=== PATIENT | male | born 1930 | race Caucasian/White ===

== ENCOUNTER 2017-05-02 14:45 | Outpatient (CLI) | payer MEDICARE ==
[2017-05-02 14:49] LABS: Calc. Creatinine Clearance 0 mL/min (70-130); Calcium 9.3 mg/dL (7.8-10.44); Carbon Dioxide 25 mmol/L (23-31); Chloride 106 mmol/L (98-107); Estimated GFR-MDRD 68; Glucose 89 mg/dL (83-110); Sodium 143 mmol/L (136-145)
[2017-05-02 14:51] LABS: BUN (Urea Nitrogen) 22 mg/dL (8.4-25.7)
[2017-05-02 14:52] LABS: Anion Gap 17 mmol/L (10-20)
== END 2017-05-02 14:46 | disposition home or self-care (01) ==
LOC: MADLAB 14:45
PROVIDERS: ATTEND Internal Medicine Cardiovascular Disease
DX: I50.22 Chronic systolic (congestive) heart failure (principal)
CPT/HCPCS: 80048; 80162

== ENCOUNTER 2018-02-20 13:14 | Outpatient (CLI) | payer MEDICARE ==
--- NOTE | 2018-02-20 16:09 | CT ---
LUMBAR SPINE CT WITHOUT IV CONTRAST: History: 88-year-old male with history of acute low back pain for one week without trauma. FINDINGS: There is nodular enlargement of the right adrenal gland which measures approximately 3 cm with attenu ation coefficients which are not consistent with a benign adenoma. There are more marked generalized disc desiccation changes and ligament and facet hypertrophic changes. There are very extensive lytic bone metaphysis involving all of the lumbar vertebral bodies as well as T12 and the sacrum that is vi sualized. There is a very large right sided destructive bone lesion involving the T12 right sided pos terior vertebral body extending into the pedicle as well as the pars intraarticularis region and into the right lamina as well as some destructive changes of the right 12th rib at the costovertebral alley ction. There is moderate canal stenosis at T11-12 and T12-L1 from disc degenerative disease. There is mild central canal stenosis at L1-2. L2-3: There is severe central canal and lateral recess stenosis from disc bulge and ligament and face t hypertrophic changes. L3-4: Moderate to severe canal and lateral recess stenosis. L4-5: There is very severe central canal stenosis from the combination of disc bulge and ligament and facet hypertrophic changes. L5-S1: Bilateral foraminal stenosis at L5-S1. 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 Right adrenal mass measuring approximately 3 cm which d oes not have features consistent with a benign adenoma. Multilevel, up to very severe, central canal and lateral recess stenosis throughout the lumbar spine from severe disc desiccation changes and disc osteophytosis and hypertrophic ligamentous changes. Follow up complete spine MRI with and without IV contrast might be considered to evaluate for any additional bone metaphysis which may potentially be involving the spinal canal. A bone scan might be helpful additionally as well. Findings discussed wi Dr. Cox by phone at 2:20 p.m. Code CR POS: [facility]
== END 2018-02-20 13:15 | disposition home or self-care (01) ==
LOC: MADCT 13:14
PROVIDERS: ATTEND Family Medicine
DX: M54.5 Low back pain (principal); M89.9 Disorder of bone, unspecified
CPT/HCPCS: 72131